=== PATIENT | female | born 1990 | race Caucasian/White ===

== ENCOUNTER 2016-11-09 11:54 | Emergency (ER) | payer OTHER ==
--- NOTE | 2016-11-09 12:20 | PROVIDER DOCUMENTATION ---
HPI-EENT General <Derian Pyle - Last Filed: 11/09/16 12:55> - General Source: patient - History of Present Illness-EENT General EENT Location: reports: throat Quality of Pain: reports: aching Severity: reports: moderate Onset/Duration: reports: 3 days ago Timing: reports: still present Prearrival Treatment: Initiated no prearrival treatment Associated Symptoms: reports: cough, nasal congestion/drainage, sore throat Locality of Occurance: Home Similar Symptoms Previously?: No Recently seen or treated by another doctor?: No <Donald Espinal - Last Filed: 11/09/16 13:05> - General Chief Complaint: Cold Symptoms Stated Complaint: PAIN IN HIPS/BACK (PREG) COLD SX Time Seen by Provider: 11/09/16 12:11 Allergies/Adverse Reactions: Patient Allergies Allergy/AdvReac Type Severity Reaction Status Date / Time meperidine HCl * Allergy RASH Verified 11/09/16 12:13 [From Demerol] povidone-iodine Allergy SWELLING Verified 11/09/16 12:13 [From Betadine] soap [From Betadine] Allergy SWELLING Verified 11/09/16 12:13 Home Medications: Home Medication List Medication Instructions Recorded Confirmed Last Taken Type Albuterol [Proventil] 4 mg PO PRN PRN 10/13/15 11/09/16 10/05/15 History Omeprazole [Prilosec] 40 mg PO DAILY #30 capsule. 10/14/15 11/09/16 Unknown Rx - History of Present Illness-EE General Nature of Presenting Problem: This pt presents to ED with c/o congestion, sore throat, non-productive cough, and lower back pain for approx 3-4 days. She is currently 18 weeks . Denies N/V/D, body aches, chills, or fever. (Derian Pyle) Review of Systems - Adult - REVIEW OF SYSTEMS - ADULT Constitutional: denies: chills, fever, fatique Eyes: reports: no symptoms reported Ears, Nose, Mouth & Throat: reports: sinus problem, throat pain. denies: ear pain, throat swelling Cardiovascular: denies: chest pain, irregular heart rate, orthopnea Respiratory: reports: cough. denies: shortness of breath, wheezing Gastrointestinal: reports: no symptoms reported Genitourinary: reports: no symptoms reported Musculoskeletal: reports: back pain. denies: bone pain, joint pain, joint swelling Integumentary: reports: no symptoms reported Neurological: reports: no symptoms reported Psychiatric: reports: no symptoms reported Endocrine: reports: no symptoms reported Hematologic/Lymphatic: reports: no symptoms reported Allergic/Immunologic: reports: no symptoms reported All Other Systems: Reviewed and Negative <Donald Espinal - Last Filed: 11/09/16 13:05> Past History - Adult - PAST MEDICAL HISTORY-ADULT Review of Records: reports: Nursing Assessment Review, Medications Reviewed Major Childhood Illnesses: reports: denies history Respiratory: reports: asthma - IMMUNIZATION STATUS Childhood Immunizations: See Nurse Assessment Flu Vaccine: See Nurse Assessment - FAMILY HISTORY Family History: reviewed, not pertinent - SOCIAL HISTORY Smoking: denies Substance Use: none/never <Donald Espinal - Last Filed: 11/09/16 13:05> Physical Exam- EENT - Physical Exam EENT Initial Vital Signs Reviewed: Yes General Appearance: appears well, alert, no apparent distress Eye Exam: bilateral eye: normal inspection, PERRL, EOMI Ear Exam: bilateral ear: auricle normal, canal normal, TM normal Throat Exam: normal mouth inspection, pharynx normal Respiratory: chest non-tender, lungs clear, normal breath sounds, no pleuratic chest pain, no respiratory distress, no accessory muscle use Cardiovascular: regular rate, rhythm, no edema, no gallop, no JVD, no murmur Abdominal Exam: non tender, soft, no organomegaly, no pulsatile mass Extremity: normal range of motion, non-tender Integumentary: normal color, normal turgor, warm/dry Psych/Mental Status: normal mood/affect, normal thought content, normal thought process, oriented x 3 <Donald Espinal - Last Filed: 11/09/16 13:05> Progress <Derian Pyle - Last Filed: 11/09/16 12:55> <Donald Espinal - Last Filed: 11/09/16 13:05> - PLAN OF CARE/RESULTS Progress/Plan/Lab Results: Orders Category Date Time Status ED: Urine Bedside ORDERED Care 11/09/16 12:21 Active DIRECT STREP Stat Lab 11/09/16 12:15 Completed INFLUENZA SCREEN A/B Stat Lab 11/09/16 12:15 Completed URINALYSIS W/POSS RFLX CULT [URINALYSIS] Stat Lab 11/09/16 12:19 Completed Vital Signs - 24 hr 11/09/16 12:02 Temperature 98.4 F Pulse Rate 104 H Respiratory 20 Rate Blood Pressure 130/77 O2 Sat by Pulse 100 Oximetry (Donald Espinal) Departure - Departure Time of Disposition Order: 12:56 Certified Medical Emergency: Urgent <Derian Pyle - Last Filed: 11/09/16 12:55> <Donald Espinal - Last Filed: 11/09/16 13:05> - Departure DIAGNOSIS: Back pain affecting , Cold Qualifiers: Weeks of gestation: 18 weeks Qualified Code(s): Z3A.18 - 18 weeks gestation of Disposition: HOME 01 Condition: Good Additional Instructions: Take Tylenol Sinus for your cold symptoms and back pain. Also use Icy-Hot patches on your low back. Follow up with your TRA[facility]EL[facility]INEER. ED Follow Up Instructions: You have been treated by a care provider in the Emergency Department. These instructions are being provided to you so you can have an understanding of how to care for yourself upon discharge. Upon discharge from the Emergency Department, you are responsible for making arrangements for follow-up care by a physician of your choice. Take all prescribed medications as directed. Return to the Emergency Department immediately for any new or worsening symptoms. You may call the Physician Referral phone number at [phone] to obtain a list of Physicians who are taking new patients. Referrals: None,PCP [Primary Care Provider] - Attestation - Physician/ AMAURI Attestation Patient care was provided by Advanced Practice Provider:: Yes Advanced Practice Provider:: Derian Pyle Advanced Practice Provider documentation review:: The Mid-level provider documentation, treatment plan and medical decision making was reviewed by the physician who agrees with all treatment and medical decision making by the MLP. <Derian Pyle - Last Filed: 11/09/16 12:55> - Scribe Verification/Attestation Scribe:: Donald Espinal Acting as Scribe for:: Derian Pyle Scribe documention review:: This chart was documented by a scribe and accurately reflects the service the provider performed and the decisions made by the provider. <Donald Espinal - Last Filed: 11/09/16 13:05> Physician Attestation
[2016-11-09 12:24] LABS: URINE CULTURE NEEDED? NO; URINE MICRO REVIEW NEEDED? NO; URINE SOURCE CLEAN CATCH
[2016-11-09 12:31] LABS: BILIRUBIN URINE NEGATIVE (NEGATIVE); BLOOD URINE NEGATIVE (NEGATIVE); COLOR YELLOW; GLUCOSE URINE NEGATIVE (NEGATIVE); LEUKOCYTES URINE NEGATIVE (NEGATIVE); NITRITE URINE NEGATIVE (NEGATIVE); PH URINE 5.5; PROTEIN URINE NEGATIVE (NEGATIVE); SP GRAVITY URINE 1.016; TURBIDITY URINE CLEAR (CLEAR); UR EPITHELIAL CELLS <10 /HPF (<10); URINE BACTERIA NEGATIVE /HPF; URINE RBC <10 /HPF (<10); URINE WBC <10 /HPF (<10); UROBILINOGEN URINE NORMAL (NORMAL)
[2016-11-09 13:29] VITALS: BP 126/70
== END 2016-11-09 13:32 | disposition home or self-care (01) ==
LOC: ED 11:54
DX: O26.892 Other specified pregnancy related conditions, second trimester (principal); M54.5 Low back pain; J00 Acute nasopharyngitis [common cold]; R09.81 Nasal congestion; J02.9 Acute pharyngitis, unspecified; R05 Cough; J45.909 Unspecified asthma, uncomplicated; Z3A.18 18 weeks gestation of pregnancy; Z79.899 Other long term (current) drug therapy
CPT/HCPCS: 81001; 81025; 87081; 87430; 87804; 99283